=== PATIENT | male | born 1945 | race Caucasian/White ===

== ENCOUNTER 2018-12-02 22:27 | Emergency (ER) | payer MEDICARE, BC ==
[~2018-12-02] VITALS: Ht 182.9 cm; Wt 97.7 kg
[2018-12-02 22:39] VITALS: Ht 182.9 cm; Wt 97.7 kg
[2018-12-02] MEDS ORDERED: SOD CHLORIDE 0.9% 1,000 ML IV STA (23:14)
[2018-12-02] MEDS ORDERED: PANTOPRAZOLE 40 MG INJ IV ONE (23:30)
[2018-12-02] MEDS ORDERED: ONDANSETRON 4 MG INJ IV STA (23:30)
--- NOTE | 2018-12-03 00:37 | ERD ---
ER Documentation Chief Complaint Chief Complaint vomited blood 2L as per grandson today, hx DM,HTN,GERD,recent flu HPI This 73-year-old male presents to the emergency room for evaluation of vomiting blood. The patient does have a history of diabetes and hypertension and states that he was recently diagnosed with A. fib and was started on Coumadin approximately 2 weeks ago. The patient states he vomited up once and noted some brown color of his vomit and came to the ER for evaluation. He denies any chest pain or shortness of breath or abdominal pain or nausea or vomiting. He denies any weakness and states that he was brought in on the insistence of his grandchildren who are at bedside at this time. ROS All systems reviewed and are negative except as per history of present illness. Allergies Allergies: Coded Allergies: No Known Allergy (Unverified , 12/02/18) PMhx/Soc Medical and Surgical Hx: pt denies Medical Hx, pt denies Surgical Hx History of Surgery: No Anesthesia Reaction: No Hx Neurological Disorder: No Hx Respiratory Disorders: No Hx Cardiac Disorders: Yes (hypertension ) Hx Psychiatric Problems: No Hx Miscellaneous Medical Probl: Yes (dm) Hx Alcohol Use: No Hx Substance Use: No Hx Tobacco Use: No Smoking Status: Never smoker Physical Exam Vitals Vital Signs Date Temp Pulse Resp B/P (MAP) Pulse Ox O2 O2 Flow FiO2 Time Delivery Rate 12/02/18 98.0 76 18 152/78 97 Room Air 22:57 (102) 12/02/18 98.0 84 18 156/72 97 22:39 (100) Physical Exam INITIAL VITAL SIGNS: Reviewed by me GENERAL: The patient is well developed and appropriate for usual state of health in no apparent distress HEENT: Pupils equal, round, and reactive to light. EOMI. There is no scleral icterus. NECK: C-spine is soft and supple, there is no meningismus. There is no cervical lymphadenopathy. LUNGS: Clear to auscultation bilaterally. There are no rales, wheezes or rhonchi. HEART: Regular rate and rhythm, no murmurs, clicks, rubs or gallops. ABDOMEN: Soft, non-tender, non-distended. There are bowel sounds in all four quadrants. No rebound or guarding. EXTREMITIES: There is no peripheral cyanosis or edema. No focal swelling or erythema. NEUROLOGICAL: The patient moves all four extremities with 5/5 strength. Cranial nerves II - XII are intact. Normal gait. Alert and oriented SKIN: There is no apparent rash or petechiae. HEME/LYMPHATIC: There is no evidence of excessive bruising or lymphedema. PSYCHIATRIC: The patient does not appear anxious or depressed. Result Diagram: 12/02/18 2323 12/02/182322 Results 24 hrs Laboratory Tests Test 12/02/18 23:23 White Blood Count 10.9 10^3/ul Red Blood Count 3.72 10^6/ul Hemoglobin 11.1 g/dl Hematocrit 33.2 % Mean Corpuscular Volume 89.2 fl Mean Corpuscular Hemoglobin 29.8 pg Mean Corpuscular Hemoglobin Concent 33.4 g/dl Red Cell Distribution Width 13.3 % Platelet Count 195 10^3/UL Mean Platelet Volume 12.4 fl Immature Granulocytes % 0.500 % Neutrophils % 71.6 % Lymphocytes % 18.3 % Monocytes % 7.4 % Eosinophils % 1.7 % Basophils % 0.5 % Nucleated Red Blood Cells % 0.0 /100WBC Immature Granulocytes # 0.050 10^3/ul Neutrophils # 7.8 10^3/ul Lymphocytes # 2.0 10^3/ul Monocytes # 0.8 10^3/ul Eosinophils # 0.2 10^3/ul Basophils # 0.1 10^3/ul Nucleated Red Blood Cells # 0.0 10^3/ul Prothrombin Time 17.3 Sec Prothrombin Time Ratio 1.4 INR International Normalized Ratio 1.40 Activated Partial Thromboplast Time 35.2 Sec Sodium Level 142 mmol/L Potassium Level 5.4 mmol/L Chloride Level 103 mmol/L Carbon Dioxide Level 26 mmol/L Anion Gap 13 Blood Urea Nitrogen 36 mg/dl Creatinine 0.82 mg/dl Est Glomerular Filtrat Rate mL/min mL/min Glucose Level 224 mg/dl Calcium Level 9.3 mg/dl Total Bilirubin 0.1 mg/dl Direct Bilirubin 0.00 mg/dl Indirect Bilirubin 0.1 mg/dl Aspartate Amino Transf (AST/SGOT) 18 IU/L Alanine Aminotransferase (ALT/SGPT) 13 IU/L Alkaline Phosphatase 64 IU/L Total Protein 7.1 g/dl Albumin 4.0 g/dl Globulin 3.10 g/dl Albumin/Globulin Ratio 1.29 Lipase 68 U/L Current Medications Medications Dose Sig/Ernestine Start Time Status Last (Trade) Ordered Route PRN Stop Time Admin Dose Reason Admin Sodium 1,000 ml @ Q1H STAT 12/02/18 DC 12/02/18 Chloride 1,000 mls/hr IV 23:14 12/03/18 23:27 00:13 Ondansetron 4 mg ONCE STAT 12/02/18 DC HCl (Zofran IV 23:30 12/02/18 Inj) 23:31 40 mg ONCE ONCE 12/02/18 DC Pantoprazole IV 23:30 12/02/18 (Protonix 23:31 Iv) Procedures/MDM Chest X-ray 1V Interpreted by me: Soft Tissue: No acute abnormalities Bones: No acute abnormalities Mediastinum/Cardiac Silhouette/Lungs: [No acute abnormalities] This 73-year-old male presents to the emergency room for evaluation of possible hematemesis. The patient is on Coumadin for A. fib. On my exam the patient was afebrile and nontoxic-appearing. He was not tachycardic and had no abdominal pain. Lab work was obtained which does show mild elevation in BUN. The patient was given IV fluids, Protonix, and Zofran. He has had no vomiting since being in the emergency room, and his hemoglobin is 11.1. The patient is requesting to go home. I did advise him that he could have early upper GI bleed. The patient is insisting on going home at this time he states he feels much better. I advised him that I will discharge him with a prescription for Zofran and Protonix however if he continues to have any type of vomiting or any dark stool he needs to return immediately to the emergency room to be evaluated for upper GI bleed. Patient verbalizes understanding and is okay with the plan of care. Departure Diagnosis: Primary Impression: Hematemesis Additional Impression: Diabetes mellitus Condition: Stable ZAYDA MINOR DO Dec 03, 2018 00:37
[2018-12-03] MEDS ORDERED: PANT40TA3 PO (00:40)
[2018-12-03] MEDS ORDERED: ONDA4TAB8 PO (00:40)
[2018-12-03 00:53] VITALS: BP 127/70; PULSE 78; RESP 16
== END 2018-12-03 02:00 | disposition home or self-care (01) ==
LOC: E/R 22:27
DX: K92.0 Hematemesis (principal); E11.9 Type 2 diabetes mellitus without complications; I10 Essential (primary) hypertension
CPT/HCPCS: 71045; 80053; 83690; 85025; 85610; 85730; 86850; 86900; 86901; J2405; J7030; 96374; 96375